=== PATIENT | female | born 1985 | race Caucasian/White ===

== ENCOUNTER 2019-07-06 00:05 | Emergency (ER) | payer MEDICAID ==
[~2019-07-06] VITALS: Ht 170.2 cm; Wt 63.6 kg
[~2019-07-06 00:05] MED LIST: CYCL-1 PO; DOCU-28 PO; PALI3TAB PO; TOPI50TA PO; VENL150C2 PO
[2019-07-06] MEDS ORDERED: normal saline 1000ML IV soln IVB ONE (00:25)
[2019-07-06 00:55] LABS: BASOPHILS % (AUTO) 0.6 % (0-1); EOSINOPHILS # (AUTO) 0.3 X10'3 (0-0.9); HEMOGLOBIN 13.9 g/dl (12.0-16.0); LYMPHOCYTES # (AUTO) 2.1 X10'3 (1.1-4.8); MEAN CORPUSCULAR HEMOGLOBIN 30.6 PG (27.0-31.0); MEAN CORPUSCULAR HGB CONC 34.8 g/dL (33.0-36.5); MEAN CORPUSCULAR VOLUME 87.9 FL (78-98); MEAN PLATELET VOLUME 7.2 FL (7.4-10.4); MONOCYTES # (AUTO) 0.6 X10'3 (0-0.9); MONOCYTES % (AUTO) 7.8 % (2-12); NEUTROPHILS # (AUTO) 4.2 X10'3 (1.8-7.7); NEUTROPHILS % (AUTO) 58.6 % (42-75); PLATELET COUNT 243 X10'3 (140-440); RED BLOOD COUNT 4.55 X10'6 (4.20-5.60); RED CELL DISTRIBUTION WIDTH 12.9 % (11.5-14.5); WHITE BLOOD COUNT 7.2 X10'3 (4.5-11.0)
[2019-07-06 01:09] LABS: ALANINE AMINOTRANSFERASE 23 U/L (12-78); ALBUMIN 3.4 G/DL (3.4-5.0); ALBUMIN/GLOBULIN RATIO 0.9 (1.1-1.5); ALKALINE PHOSPHATASE 92 IU/L (46-116); ANION GAP 7 (8-16); ASPARTATE AMINO TRANSFERASE 22 U/L (10-37); BILIRUBIN,TOTAL 0.4 MG/DL (0.1-1.0); BLOOD UREA NITROGEN 14 MG/DL (7-18); BUN/CREATININE RATIO 16.3 (6.6-38.0); CALCIUM 9.3 MG/DL (8.5-10.1); CHLORIDE 102 MMOL/L (99-107); CREATININE 0.86 MG/DL (0.40-0.90); ETHANOL < 0.010 GM/DL (0.0-0.010); GLUCOSE 157 MG/DL (70-104); SODIUM 139 MMOL/L (135-145); TOTAL CARBON DIOXIDE 30.3 MMOL/L (24-32); TOTAL PROTEIN 7.2 G/DL (6.4-8.2); eGFR 76 ML/MIN
[2019-07-06 01:31] VITALS: BP 148/95
[2019-07-06 01:33] LABS: URINE HCG NEGATIVE (NEG)
[2019-07-06 01:47] LABS: URINE AMPHETAMINE SCREEN POSITIVE (Neg); URINE BARBITUATE SCREEN NEGATIVE (Neg); URINE BENZODIAZEPINES SCREEN NEGATIVE (Neg); URINE CANNABINOID SCREEN POSITIVE (Neg); URINE COCAINE SCREEN NEGATIVE (Neg); URINE METHADONE SCREEN NEGATIVE (Neg); URINE OPIATE SCREEN POSITIVE (Neg); URINE PHENCYCLIDINE SCREEN NEGATIVE (Neg)
== END 2019-07-06 01:32 ==
LOC: ER 00:05
DX: F15.10 Other stimulant abuse, uncomplicated (principal); R42 Dizziness and giddiness; I10 Essential (primary) hypertension; G89.29 Other chronic pain; F12.90 Cannabis use, unspecified, uncomplicated; F17.200 Nicotine dependence, unspecified, uncomplicated; Z98.890 Other specified postprocedural states; Z88.0 Allergy status to penicillin; Z79.899 Other long term (current) drug therapy
CPT/HCPCS: 36415; 71045; 80053; 80305; 80320; 81025; 85025; 93005; 99285; J7030

== ENCOUNTER → 2020-10-11 | Emergency (ER) | payer MEDICAID ==
[~2020-10-11] VITALS: Ht 167.6 cm; Wt 63.6 kg
[2020-10-11 18:14] VITALS: BP 131/95
[2020-10-11 19:46] LABS: CLARITY,URINE CLEAR (Clear); COLOR,URINE YELLOW (Yellow); GLUCOSE, URINE NEGATIVE (Neg); KETONES,URINE NEGATIVE (Neg); LEUKOCYTE ESTERASE ,URINE NEGATIVE (Neg); NITRITES, URINE NEGATIVE (Neg); OCCULT BLOOD,URINE NEGATIVE (Neg); PROTEIN,URINE NEGATIVE (Neg); UROBILINOGEN,URINE 0.2 E.U/dL (0.2-1.0)
[2020-10-11 19:47] LABS: URINE HCG NEGATIVE (NEG)
[2020-10-11 19:48] LABS: UA COLLECTION TYPE CLN CATCH MIDSTREAM
[2020-10-11 19:54] LABS: BACTERIA,URINE FEW /HPF (Neg); MUCUS STRANDS MANY /LPF (Neg); RBC,URINE NONE SEEN /HPF (0-2); SQUAMOUS EPITHELIAL CELL,UR FEW /LPF (FEW)
== END | disposition left against medical advice (07) ==
LOC: ER 17:21
DX: R10.9 Unspecified abdominal pain (principal); Z53.21 Procedure and treatment not carried out due to patient leaving prior to being seen by health care provider
CPT/HCPCS: 81001; 81025; 87088

== ENCOUNTER 2022-12-11 08:57 | Emergency (ER) | payer MEDICAID ==
[~2022-12-11] VITALS: Ht 167.6 cm; Wt 77.4 kg
[~2022-12-11 08:57] MED LIST changes: -VENL150C2 PO; +VENL150C4 PO
[2022-12-11 09:03] VITALS: BP 120/76
== END 2022-12-11 14:00 | disposition left against medical advice (07) ==
LOC: ER 08:57
DX: R19.7 Diarrhea, unspecified (principal); Z53.21 Procedure and treatment not carried out due to patient leaving prior to being seen by health care provider
CPT/HCPCS: 99281

== ENCOUNTER 2024-11-23 12:37 | Emergency (ER) | payer MEDICAID ==
[~2024-11-23] VITALS: Ht 167.6 cm; Wt 65.2 kg
[~2024-11-23 12:37] MED LIST changes: -VENL150C4 PO; +VENL150C5 PO
[2024-11-23 12:46] VITALS: BP 130/94; PULSE 122; TEMP 100.1; O2SAT 97
[2024-11-23 13:11] LABS: LEUKOCYTE ESTERASE ,URINE LARGE (Neg); NITRITES, URINE POSITIVE (Neg); OCCULT BLOOD,URINE MODERATE (Neg)
[2024-11-23 13:12] LABS: URINE HCG NEGATIVE (NEG)
[2024-11-23 13:16] LABS: MEAN PLATELET VOLUME 7.2 FL (7.4-10.4)
[2024-11-23 13:18] LABS: RED CELL DISTRIBUTION WIDTH 12.8 % (11.5-14.5)
[2024-11-23 13:19] LABS: UA COLLECTION TYPE CLN CATCH MIDSTREAM
[2024-11-23 13:21] LABS: MUCUS STRANDS NONE SEEN /LPF (Neg); SQUAMOUS EPITHELIAL CELL,UR FEW /LPF (FEW); WBC CLUMPS,URINE MODERATE /HPF (NEGATIVE)
[2024-11-23 13:30] LABS: CREATININE 0.76 MG/DL (0.40-0.90); TOTAL CARBON DIOXIDE 27.9 MMOL/L (24-32); eCRCL 94 ML/MIN; eGFR 85 ML/MIN
[2024-11-23] MEDS: CefTRIAXone 2gm/D5W 50ml BAG 50 ML IV ONE (15:07)
[2024-11-23] MEDS: normal saline 1000ML IV soln IV ONE (15:08)
--- NOTE | 2024-11-23 15:13 | Physician Documentation ---
History of Present Illness Chief Complaint: Flank Pain Stated Complaint: FLANK PAIN Time Seen by MD: 14:00 OK to notify your PCP?: Yes Primary Medical Doctor: NONE Source: patient, RN/MD, RN notes reviewed, old records Mode of Arrival: POV Exam Limitations: no limitations HPI 39 year old female presents to the emergency department seen in bed 14 for complaints of flank pain that has been present for three days. She states that her pain began three nights ago on the right side of her abdomen and it worsened today. She states that the pain radiates to her flank. She denies any chills or fevers. She denies pain or pressure when urinating. She endorses meth use one week ago. Of note patient was told she needed to be admitted but denied adamantly due to a recent loss as well as having no child life assistant. Patient denies any other associated symptoms at this time. Patient denies any other alleviating or exacerbating factors. Medication Reconciliation Allergies: Coded Allergies: No Known Allergies (Unverified , 10/11/20) Scheduled Ciprofloxacin HCl (Ciprofloxacin HCl), 1 TAB PO Q12H Docusate Sodium (Colace), 1 CAP PO TID Paliperidone (Invega), 1 TABLET PO DAILY, (Reported) Topiramate (Topamax), 1 TABLET PO BID, (Reported) Venlafaxine HCl (Effexor Xr), 225 MG PO DAILY, (Reported) Scheduled PRN Cyclobenzaprine* (Cyclobenzaprine*), 1 TABLET PO Q8H PRN for muscle spasms Past Medical History Past Medical History: Hypertension, Hemorrhoids, Chronic Pain, Anxiety, Depression Past Surgical History: orthopedic surgeries Alcohol Use: None Drug Use: marijuana, methamphetamine Lives In: Home Review of Systems All Other Systems at this time: Reviewed and Negative ROS As stated above in the HPI, otherwise all systems are reviewed and negative. Physical Exam Vital Signs: RN Vital Signs have been reviewed: Yes, Temperature: 100.1, Source: Temporal, Heart Rate: 122, Respiratory Rate: 18, BP: 130/94, Pulse Oximetry: 97, Weight: 65.250 Oxygen Flow Rate: 0 Pulse Oximetry Reflects: adequate oxygenation Physical Exam General: The patient is well developed, well nourished, nontoxic appearing and is in no acute distress. Skin: [place], warm and dry with no rashes. HEENT: Head was normocephalic and atraumatic. Eyes - pupils equal, round, reactive to light and accommodation. Extraocular movements were intact. Conjunctivae were nonicteric. Ears - bilateral tympanic membranes were normal. The mouth and oropharynx were clear with moist mucous membranes. There were no pharyngeal exudates or erythema. Neck: Supple and nontender. There was no jugular venous distention, lymp hadenopathy, thyromegaly or masses. Chest: Clear to auscultation bilaterally without wheezes, rales or rhonchi. No accessory muscle use. No dullness to percussion. Heart: Rapid heart rate. S1, S2. No murmurs. Palpation of the chest wall was normal. No rubs or thrills. Abdomen: Right flank pain. CVA tenderness with superpubic discomfort. Soft, nontender and nondistended. Positive bowel sounds. No guarding or rebound. No hepatosplenomegaly or palpable masses. Extremities: No cyanosis, clubbing or edema. The patient moves all extremities. Pulses were equal and symmetric. Neurologic: Cranial nerves II-XII were intact. Sensation was intact to light touch throughout. Motor strength was 5/5 in all four extremities. Deep tendon reflexes were intact in both upper and lower extremities. Psychologic: The patient was oriented to person, place and time. The patient demonstrated appropriate judgement and insight. Progress Results/Orders Reviewed/noted all lab results: Yes Results/Orders Orders - CASPER HDOGE MD Cult Urine + [address] (11/23/24 13:22) Culture Blood (11/23/24 14:01) Completed Orders - CASPER HODGE MD Hcg, Ur Ql (11/23/24 12:49) Cbc/Diff (11/23/24 12:49) Lipase (11/23/24 12:49) CMP (11/23/24 12:49) Ua W/Microscopic, Cult If Ind (11/23/24 12:50) Normal Saline 1000ml (Sodium Chloride 10 (11/23/24 14:05) Procalcitonin (11/23/24 14:01) Ceftriaxone 2gm/D5w 50ml Bag (Rocephin 2 (11/23/24 14:05) Lacticsepsis (11/23/24 14:01) MG (11/23/24 13:02) Hydromorphone 1 Mg/Ml/Pf (Dilaudid Inj.) (11/23/24 15:10) Medications Received in ER Medications (Trade) Dose Ordered Sig/Barrera Route PRN Reason Start Time Stop Time Status Last Admin Dose Admin (sodium chloride 1000ml IV soln) 2,500 ml ONCE ONCE IV 11/23/24 14:05 11/23/24 14:06 DC 11/23/24 15:08 2,500 ML Ceftriaxone Sodium/Dextrose 50 ml @ 100 mls/hr ONCE ONCE IV 11/23/24 14:05 11/23/24 14:34 DC 11/23/24 15:07 100 MLS/HR Vital Signs 11/23/24 12:46 Temp 100.1 Pulse 122 Resp 18 B/P (MAP) 130/94 Pulse Ox 97 O2 Flow Rate 0 Laboratory Tests Test 11/23/24 12:50 11/23/24 13:02 Urine Specimen Description Cln catch midstream Urine Color Yellow Urine Clarity Cloudy Urine pH 7.0 Urine Specific [place] 1.015 Urine Protein 30 H Urine Glucose (UA) Negative Urine Ketones 40 H Urine Occult Blood Moderate H Urine Nitrite Positive H Urine Bilirubin Negative Urine Urobilinogen 2.0 H Urine Leukocyte Esterase Large H Urine RBC 3-10 Urine WBC Tntc H Urine WBC Clumps Moderate Urine Squamous Epithelial Cells Few Urine Bacteria 2+ Urine Mucus None seen Urine Culture Indicated Indicated Volume Urine Centrifuged 10 ml Urine HCG, Qualitative Negative Urine Comment White Blood Count 12.6 H Red Blood Count 4.37 Hemoglobin 13.6 Hematocrit 39.5 Mean Corpuscular Volume 90.5 Mean Corpuscular Hemoglobin 31.1 H Mean Corpuscular Hemoglobin Concent 34.3 Red Cell Distribution Width 12.8 Platelet Count 230 Mean Platelet Volume 7.2 L Neutrophils (%) (Auto) 82.3 H Lymphocytes (%) (Auto) 9.7 L Monocytes (%) (Auto) 7.4 Eosinophils (%) (Auto) 0.1 Basophils (%) (Auto) 0.5 Neutrophils # (Auto) 10.3 H Lymphocytes # (Auto) 1.2 Monocytes # (Auto) 0.9 Eosinophils # (Auto) 0.0 Basophils # (Auto) 0.1 CBC Comment Sodium Level 136 Potassium Level 3.2 L Chloride Level 101 Carbon Dioxide Level 27.9 Anion Gap 7 L Blood Urea Nitrogen 6 L Creatinine 0.76 Estimated GFR/1.73 m2 85 BUN/Creatinine Ratio 7.9 L Glucose Level 166 H Lactic Acid Level 0.8 Calcium Level 8.6 Magnesium Level 2.0 Total Bilirubin 1.2 H Aspartate Amino Transf (AST/SGOT) 16 Alanine Aminotransferase (ALT/SGPT) 17 Alkaline Phosphatase 61 Total Protein 7.3 Albumin 3.5 Globulin 3.8 Albumin/Globulin Ratio 0.9 L Lipase 17 Procalcitonin 0.21 Chemistry Comments Microbiology Date/Time Source Procedure Growth Status 11/23/24 13:22 Urine Clean Catch Midstream Urine Culture - Preliminary Culture received. Resulted Re-Evaluation Re-Evaluation : Re-Evaluation: Improved Progress Patient was seen and examined. Patient was given reassurance however patient refused admission. She presented looking ill and left looking ill. Patient received excessive amounts of antibiotics including 2 g of Rocephin, fosfomycin and was given a prescription for additional medications. She was requesting pain medications which he received while she was a patient but no pain meds were given on outpatient basis because her high chance of poor outcome. Also the hernandez cardenas was told if she has continued fevers and chills she needs to return for immediate evaluation and admission. Laboratory work was obtained CBC WBC elevated 12.6 hemoglobin 13 hematocrit 39 platelets 230 with a left shift of 82.3 neutrophils. Chemistry showed a negative procalcitonin negative lactic acid CO2 was also reassuring with 27.9. Glucose slightly elevated at 166. Po tassium low at 3.2 which was supplemented magnesium 2.0. Urinalysis however showed a specific gravity of 1.015 with trace proteinuria ketonuria as well as hematuria nitrates were positive leukocyte esterase are large WBCs TNTC with RBCs 3-10. is negative. Cat scan was then obtained which showed some concerning findings such as right perinephric fluid and fat stranding may be due to pyelonephritis or recent UTI. After discussing the case with the patient's several times she continued to refused admission. Later family members came to the bedside which the patient said she had none but even then still refused admission despite family trying to also encouraged her to stay for additional treatments. Ultimately patient signed out against coroner/medical examiner. Prescription for ciprofloxacin on outpatient basis was prescribed without pain medications. 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 Pulse oximetry monitor interpretation shows normal oxygenation 97% room air, normal, my interpretation. EKG/XRAY/CT/US/VASC/MRI CT : Impression [facility] [address], [place], [place] - [address] CAT SCAN Patient: TAZ TINAJERO Medical Record: [id number] [facility] : 1985, Age: 39 Sex: Female Location: ER Patient Status: [facility] ER Service Date/Time: 11/23/241634 Ordering Physician: CASPER HODGE MD Exam: CT ABDOMEN PELVIS EXAM: CT CT ABDOMEN PELVIS HISTORY: ABD PAIN pylonephritis COMPARISON: None TECHNIQUE: Helical CT images of the abdomen and pelvis were performed without contrast. Sagittal and coronal reformatted images were obtained. This CT exam was performed using one or more of the following dose reduction techniques: Automated exposure control, adjustment of the mA and/or kV according to patient size, or use of iterative reconstruction technique. Radiation Dose: CT Abdomen/Pelvis: CTDIvol 12.06 mGy, DLP 625.55 mGy*cm. FINDINGS: Urinary tract: No renal or ureteral calculi, hydronephrosis, or hydroureter bilaterally. There is right perinephric fluid and fat stranding. No urinary bladder calculi. There is a tiny pocket of gas in the nondependent portion of the urinary bladder lumen. Miscellaneous: The noncontrast liver, spleen, pancreas, gallbladder, and adrenal glands are unremarkable. No abdominal aortic aneurysm. No abnormal bowel dilatationor free air. There is trace free fluid in the pelvis. There is fecal retention in the ascending and transverse colon. The appendix is not dilated and does not appear inflamed. There is mild lumbar levoscoliosis. IMPRESSION: 1. Right perinephric fluid and fat stranding is nonspecific, but may be due to pyelonephritis or recently passed right urinary tract calculus. 2. No urinary tract calculi, hydronephrosis, or hydroureter bilaterally. 3. Trace free fluid in the pelvis, likely physiologic. 4. No evidence of bowel obstruction, acute appendicitis, or other acute process in the abdomen or pelvis. Electronically Signed by:MARY WHITE MD Date & Time: 11/23/24 1710 Medical Decision Making Additional info obtained from: old records Differential Dx:Considerations: Include: Inflammatory BD, Ischemic bowel, Ovarian cyst/torsion, Pancreatitis, PID, Urinary obstruction, Urinary tract infection, Urolithiasis, Other Departure Time of Disposition: 17:13 Disposition: 01 HOME / SELF CARE / HOMELESS Impression: Primary Impression: UTI (urinary tract infection) Qualified Codes: N30.00 - Acute cystitis without hematuria Additional Impression: Acute pyelonephritis Condition: Stable Discharge Instructions: Urinary Tract Infection, Adult, [id number] Referrals: NO PRIMARY CARE PROVIDER (PCP) Prescriptions Ciprofloxacin HCl (Ciprofloxacin HCl) 250 Mg Tab 1 TAB PO Q12H for 7 Days, #14 TAB Prov: CASPER HODGE MD 11/23/24 Education Educated: Patient, Family Educated regarding: diagnosis, treatment, prognosis, need for follow up Critical Care Note Total Time (mins): 30 Critical Care Note The very real possibility of a deterioration of this patient's condition required the highest level of my preparedness for sudden, emergent intervention. I provided critical care services, which included medication orders, frequent reevaluations of the patient's condition and response to treatment, ordering and reviewing test results, and discussing the case with various consultants. Excludes time spent performing separately billable procedures. The critical care time associated with the care of the patient was. 30 minutes Signature Scribe Signature: Scribed for Casper Hodge MD by Jered Garcia . 11/23/24 17:13 Attestation: The note accurately reflects work and decisions made by me.Casper Hodge MD 11/23/24 15:12 CASPER HODGE MD Nov 23, 2024 15:13 JERED MIDDLETON Nov 23, 2024 16:55
[2024-11-23] MEDS: ondansetron/PF 4mg/2ml inj IV ONE (16:38)
[2024-11-23] MEDS: normal saline 1000ML IV soln IVB ONE (16:41)
[2024-11-23] MEDS: FOSFOMYCIN TROMETHAMINE 3 GM PACKET PO ONE (17:12)
--- NOTE | 2024-11-23 17:13 | RADIOLOGY REPORT ---
EXAM: CT CT ABDOMEN PELVIS HISTORY: ABD PAIN pylonephritis COMPARISON: None TECHNIQUE: Helical CT images of the abdomen and pelvis were performed without contrast. Sagittal and coronal ref ormatted images were obtained. This CT exam was performed using one or more of the following dose red uction techniques: Automated exposure control, adjustment of the mA and/or kV according to patient si ze, or use of iterative reconstruction technique. Radiation Dose: CT Abdomen/Pelvis: CTDIvol 12.06 mGy, DLP 625.55 mGy*cm. FINDINGS: Urinary tract: No renal or ureteral calculi, hydronephrosis, or hydroureter bilaterally. There is ri ght perinephric fluid and fat stranding. No urinary bladder calculi. There is a tiny pocket of gas in the nondependent portion of the urinary bladder lumen. Miscellaneous: The noncontrast liver, spleen, pancreas, gallbladder, and adrenal glands are unremark able. No abdominal aortic aneurysm. No abnormal bowel dilatationor free air. There is trace free fl uid in the pelvis. There is fecal retention in the ascending and transverse colon. The appendix is no t dilated and does not appear inflamed. There is mild lumbar levoscoliosis. IMPRESSION: 1. Right perinephric fluid and fat stranding is nonspecific, but may be due to pyelonephritis or rece ntly passed right urinary tract calculus. 2. No urinary tract calculi, hydronephrosis, or hydroureter bilaterally. 3. Trace free fluid in the pelvis, likely physiologic. 4. No evidence of bowel obstruction, acute appendicitis, or other acute process in the abdomen or pel vis.
[2024-11-23] MEDS ORDERED: CIPR250T4 PO (17:58)
[2024-11-23 18:00] VITALS: RESP 15
[2024-11-23] MEDS: ketorolac trometh 30MG/ML vial 30 MG/ML VIAL IV ONE (18:00)
== END 2024-11-23 18:32 | disposition left against medical advice (07) ==
LOC: ER 12:38
DX: N39.0 Urinary tract infection, site not specified (principal); N10 Acute pyelonephritis; I10 Essential (primary) hypertension; F41.9 Anxiety disorder, unspecified; F32.A Depression, unspecified; F12.90 Cannabis use, unspecified, uncomplicated; F15.90 Other stimulant use, unspecified, uncomplicated
CPT/HCPCS: 36415; 74176; 80053; 81001; 81025; 83605; 83690; 83735; 84145; 85025; 87040; 87077; 87088; 87186; 96361; 96365; 96375; 99285; J0696; J1171; J1885; J2405; J7030; J7040